=== PATIENT | female | born 1995 | race Caucasian/White ===

== ENCOUNTER → 2018-08-22 | Outpatient (CLI) | payer OTHER ==
[2018-08-25 01:09] LABS: CHLAMYDIA TRACHOMATIS, NAA Negative (Negative); NEISSERIA GONORRHOEAE, NAA Negative (Negative)
== END | disposition home or self-care (01) ==
LOC: LAB 17:55 → LAB SHORT 17:55
PROVIDERS: Obstetrics & Gynecology
DX: Z34.01 Encounter for supervision of normal first pregnancy, first trimester (principal); Z3A.12 12 weeks gestation of pregnancy
CPT/HCPCS: 87491; 87591

== ENCOUNTER → 2019-03-01 | Outpatient (CLI) | payer OTHER | END | disposition home or self-care (01) | LOC: LAB 12:44 → LAB SHORT 12:44 | DX: Z34.03 Encounter for supervision of normal first pregnancy, third trimester (principal); Z3A.36 36 weeks gestation of pregnancy | CPT/HCPCS: 87081; 87653 ==

== ENCOUNTER 2019-03-13 10:03 | Inpatient (IN) | payer OTHER ==
[~2019-03-13] VITALS: Ht 162.6 cm; Wt 124.0 kg
[2019-03-13] MEDS ORDERED: PRENATAL TABLE1 EAC2 PO (10:15)
[2019-03-13 10:47] LABS: BASOPHILS ABSOLUTE AUTO 0.03 K/mm3 (0.00-0.23); BASOPHILS PERCENT AUTO 0 % (0-2); EOSINOPHILS ABSOLUTE AUTO 0.08 K/mm3 (0.00-0.68); EOSINOPHILS PERCENT AUTO 1 % (0-6); Hematocrit 38.4 % (33.0-51.0); IMMATURE GRAN PERCENT AUTO 1 % (0-1); LYMPHOCYTES ABSOLUTE AUTO 1.18 K/mm3 (0.84-5.20); LYMPHOCYTES PERCENT AUTO 10 % (21-46); MONOCYTES ABSOLUTE AUTO 0.82 K/mm3 (0.16-1.47); MONOCYTES PERCENT AUTO 7 % (4-13); Mean Corpuscular HGB 30.2 pg (26.0-34.0); Mean Corpuscular HGB Conc 33.9 g/dL (31.5-36.5); Mean Corpuscular Volume 89 fL (80-100); Mean Platelet Volume 9.5 fL (9.1-12.4); NEUTROPHILS PERCENT AUTO 82 % (41-73); Platelet Count 297 K/mm3 (150-400); RDW Coefficient Variation 13.8 % (11.7-14.2); RDW Standard Deviation 44.5 fL (35.1-46.3); White Blood Cell Count 12.01 K/mm3 (4.00-11.30)
--- NOTE | 2019-03-14 13:05 | NUR ---
03/14/19 1305 Monserrat Guerin 1240 PATIENT ARRIVED TO OR WITH KELLY CATHETER INPLACE, EPIDURAL CATHETER REMOVED BY DR SMITH CATHETER TIP INTACT
[2019-03-14 13:22] LABS: pH Cord - Arterial 7.29 (7.28-7.35)
[2019-03-14 13:23] LABS: PO2 Cord - Arterial < 13 mmHg (16-20)
[2019-03-14 13:24] LABS: PCO2 Cord - Venous 46.2 mmHg (40-50); PO2 Cord - Venous 24.5 mmHg (28-32); pH Umbilical Cord - Venous 7.32 (7.26-7.35)
--- NOTE | 2019-03-15 04:51 | NUR ---
PATIENT REFUSING NINA CARE/PAD CHANGE AT THIS TIME. STATES SHE WANTS TO WAIT UNTIL SHE GETS UP TO SIDE OF THE BED IN AM.
[2019-03-15 05:09] LABS: BASOPHILS ABSOLUTE AUTO 0.03 K/mm3 (0.00-0.23); BASOPHILS PERCENT AUTO 0 % (0-2); EOSINOPHILS ABSOLUTE AUTO 0.07 K/mm3 (0.00-0.68); EOSINOPHILS PERCENT AUTO 0 % (0-6); Hematocrit 31.8 % (33.0-51.0); Hemoglobin 10.6 g/dL (11.5-16.0); IMMATURE GRAN ABSOLUTE AUTO 0.11 K/mm3 (0.00-0.10); IMMATURE GRAN PERCENT AUTO 1 % (0-1); LYMPHOCYTES ABSOLUTE AUTO 1.25 K/mm3 (0.84-5.20); LYMPHOCYTES PERCENT AUTO 8 % (21-46); MONOCYTES ABSOLUTE AUTO 1.18 K/mm3 (0.16-1.47); MONOCYTES PERCENT AUTO 7 % (4-13); Mean Corpuscular HGB 30.9 pg (26.0-34.0); Mean Corpuscular HGB Conc 33.3 g/dL (31.5-36.5); Mean Corpuscular Volume 93 fL (80-100); Mean Platelet Volume 8.9 fL (9.1-12.4); NEUTROPHILS ABSOLUTE AUTO 13.62 K/mm3 (1.96-9.15); NEUTROPHILS PERCENT AUTO 84 % (41-73); Platelet Count 272 K/mm3 (150-400); RDW Coefficient Variation 13.9 % (11.7-14.2); RDW Standard Deviation 46.9 fL (35.1-46.3); Red Blood Cell Count 3.43 M/mm3 (3.80-5.20); White Blood Cell Count 16.26 K/mm3 (4.00-11.30)
--- NOTE | 2019-03-15 11:30 | NUR ---
PT REFUSES KELLY OUT AT THIS TIME. WANTS PAIN MEDICATION TO KICK IN FIRST. WILL CALL WHEN READY TO GET UP
--- NOTE | 2019-03-15 13:15 | NUR ---
PT STILL DECLINING KELLY OUT, SHE HAS A ROOM FULL OF VISITORS. STATES SHE WILL GET UP AND KELLY D/C WHEN THEY LEAVE
--- NOTE | 2019-03-15 13:30 | NUR ---
PT SITTING UP AT BEDSIDE. VISITING WITH FAMILY
--- NOTE | 2019-03-15 14:30 | NUR ---
STANDING AT BEDSIDE. WANTS TO WAIT FOR SHOWER TILL NEXT PERCOCET AND WAIT FOR KELLY D/C
--- NOTE | 2019-03-15 17:00 | NUR ---
PT EATING DINNER. STATES SHE WILL GET UP AND SHOWER AT 1930, UNLESS SHE CHANGES HER MIND AND CALLS RN.
[2019-03-16] MEDS ORDERED: Percocet 5-3251 EACH PO (12:44)
[2019-03-16] MEDS ORDERED: IBUP800 PO (12:44)
--- NOTE | 2019-03-16 16:10 | NUR ---
DISCHARGE TEACHING TEACHING COMPLETED WITH BOTH PT AND SIGNIFICANT OTHER BOTH VERBALIZE UNDERSTANDING AND HAVE NO FURTHER QUESTIONS OR CONCERNS AT THIS TIME
--- NOTE | 2019-03-16 16:37 | NUR ---
No acute changes t/o shift. Pt denies any additional questions or concerns at this time. Pt d/c'd home ambulatory to care of SO.
== END 2019-03-16 16:45 | disposition home or self-care (01) | DRG 788 ==
LOC: BC 10:03 → OBS 10:03 → BC 10:11
PROVIDERS: ADMIT Obstetrics & Gynecology
PROC: 10D00Z1 Extraction of Products of Conception, Low, Open Approach (ICD-10-PCS; principal; 2019-03-14 12:30)
DX: O42.02 Full-term premature rupture of membranes, onset of labor within 24 hours of rupture (principal); Z37.0 Single live birth; Z3A.38 38 weeks gestation of pregnancy; O76 Abnormality in fetal heart rate and rhythm complicating labor and delivery; O62.1 Secondary uterine inertia; O99.214 Obesity complicating childbirth; E66.01 Morbid (severe) obesity due to excess calories
CPT/HCPCS: 36415; 51702; 59025; 82803; 85025; 86850; 86900; 86901; J0290; J0690; J1885; J2001; J2405; J2590; J2765; J3010; J7120

== ENCOUNTER → 2020-05-28 | Outpatient (CLI) | payer OTHER ==
[~2020-05-28] MED LIST: COLACE100 MG PO; FLUO10 PO; IBU800 M1 PO; IBUP800 PO; PRENATAL TABLE1 EAC2 PO; Percocet 5-3251 EACH PO
== END | disposition home or self-care (01) ==
LOC: LAB SHORT 15:59 → LAB 15:59
DX: Z34.83 Encounter for supervision of other normal pregnancy, third trimester (principal); Z3A.36 36 weeks gestation of pregnancy
CPT/HCPCS: 87081; 87150

== ENCOUNTER 2020-06-14 15:28 | Inpatient (IN) | payer OTHER ==
[~2020-06-14] VITALS: Ht 162.6 cm; Wt 105.0 kg
[~2020-06-14 15:28] MED LIST changes: -COLACE100 MG PO; -FLUO10 PO; -IBU800 M1 PO
[2020-06-17] MEDS ORDERED: FLUO10 PO (17:05)
[2020-06-19 06:15] LABS: BASOPHILS ABSOLUTE AUTO 0.04 K/mm3 (0.00-0.23); BASOPHILS PERCENT AUTO 0 % (0-2); EOSINOPHILS ABSOLUTE AUTO 0.13 K/mm3 (0.00-0.68); EOSINOPHILS PERCENT AUTO 1 % (0-6); Hematocrit 35.2 % (33.0-51.0); Hemoglobin 12.2 g/dL (11.5-16.0); IMMATURE GRAN ABSOLUTE AUTO 0.06 K/mm3 (0.00-0.10); IMMATURE GRAN PERCENT AUTO 1 % (0-1); LYMPHOCYTES ABSOLUTE AUTO 1.55 K/mm3 (0.84-5.20); LYMPHOCYTES PERCENT AUTO 16 % (21-46); MONOCYTES ABSOLUTE AUTO 0.75 K/mm3 (0.16-1.47); MONOCYTES PERCENT AUTO 8 % (4-13); Mean Corpuscular HGB 31.4 pg (26.0-34.0); Mean Corpuscular HGB Conc 34.7 g/dL (31.5-36.5); Mean Corpuscular Volume 91 fL (80-100); NEUTROPHILS ABSOLUTE AUTO 7.06 K/mm3 (1.96-9.15); NEUTROPHILS PERCENT AUTO 74 % (41-73); Platelet Count 261 K/mm3 (150-400); RDW Coefficient Variation 13.6 % (11.7-14.2); RDW Standard Deviation 45.1 fL (35.1-46.3); Red Blood Cell Count 3.88 M/mm3 (3.80-5.20); White Blood Cell Count 9.59 K/mm3 (4.00-11.30)
--- NOTE | 2020-06-19 08:04 | NUR ---
06/19/20 0804 Monserrat Guerin 0756 DELIVERY VIABLE MALE , WEIGHT 6# 15OZ 3150GM, HEAD 14 INCHES, CHEST 13 INCHES, LENGTH 18.5 INCHES, APGARS 9/9, UMBILICAL CORD BLODD COLLECTED GIVEN TO RT FOR CORD GASES, UMBILCAL CORD BLOOD COLLECTED FOR TYPE AND RH
[2020-06-19 08:23] LABS: PCO2 Cord - Arterial 37.6 mmHg (40-50); PO2 Cord - Arterial 27.4 mmHg (16-20); pH Cord - Arterial 7.34 (7.28-7.35)
[2020-06-19 08:25] LABS: PCO2 Cord - Venous 37.5 mmHg (40-50); PO2 Cord - Venous 28.5 mmHg (28-32); pH Umbilical Cord - Venous 7.34 (7.26-7.35)
--- NOTE | 2020-06-19 15:00 | NUR ---
pt medicated with 1 perc, reports pain hurts a little bit and would like something, when asked her a number when medicating her it is a 7-8. will try one pain pill and reassess in 30 minutes to see if needs another
--- NOTE | 2020-06-19 15:45 | NUR ---
RN/LC ROUNDED TO HELP W/ . PT REPORTS THAT NB JUST FED WELL. INSTRUCTED PT TO TRY TO LATCH NB EVERY 2-3 HOURS, IF NB NOT LATCHING TO HAND EXPRESS 10+ DROPS OF COLOSTRUM INTO NB'S MOUTH. INSTRUCTED PT ON CORRECT POSITIONING, LATCHING, AND NIPPLE SHAPE AFTER FEEDS. REVIEWED GUIDE TO BOOK W/ PT. PT DENIES ANY FURTHER QUESTIONS OR CONCERNS. WILL ATTEMPT TO ROUND AGAIN IN THE MORNING.
[2020-06-20 05:25] LABS: Hematocrit 31.2 % (33.0-51.0); Hemoglobin 10.7 g/dL (11.5-16.0); Mean Corpuscular HGB 31.8 pg (26.0-34.0); Mean Corpuscular HGB Conc 34.3 g/dL (31.5-36.5); Mean Corpuscular Volume 93 fL (80-100); Mean Platelet Volume 8.9 fL (9.1-12.4); Platelet Count 220 K/mm3 (150-400); RDW Coefficient Variation 13.8 % (11.7-14.2); RDW Standard Deviation 46.4 fL (35.1-46.3); Red Blood Cell Count 3.36 M/mm3 (3.80-5.20); White Blood Cell Count 11.88 K/mm3 (4.00-11.30)
--- NOTE | 2020-06-20 14:00 | NUR ---
RN/LC ROUNDED TOHELP W/ . TALKED W/PT ABOUT FREQUENCY OF , PUMPING AFTER FEEDS, CORRECT LATCH/POSITIONING, CLUSTER FEEDING AND MILK SUPPLY/ENGORGMENT. PT VERBALIZED UNDERSTANDING, DENIES ANY FURTHER QUESTIONS OR CONCERNS. FURTHER LC OFFERED IF PT DESIRES.
[2020-06-21] MEDS ORDERED: COLACE100 MG PO (08:21)
[2020-06-21] MEDS ORDERED: Percocet 5-3251 EACH PO (08:23)
[2020-06-21] MEDS ORDERED: IBU800 M1 PO (08:24)
--- NOTE | 2020-06-21 10:00 | NUR ---
DISCHARGE SUMMARY PT DC HOME TODAY WITH NB AND SPOUSE. INSTRUCTIONS, SCRIPTS, AND PERSONAL BELONGINGS PROVIDED TO PT PRIOR TO DC. FOLLOW APPT SCHEDULED.
== END 2020-06-21 09:39 | disposition home or self-care (01) | DRG 788 ==
LOC: BC 06-19 05:35
PROVIDERS: Obstetrics & Gynecology; ADMIT Family Medicine
PROC: 10D00Z1 Extraction of Products of Conception, Low, Open Approach (ICD-10-PCS; principal; 2020-06-19 07:30)
DX: O34.211 Maternal care for low transverse scar from previous cesarean delivery (principal); Z3A.39 39 weeks gestation of pregnancy; Z37.0 Single live birth; O99.214 Obesity complicating childbirth; E66.01 Morbid (severe) obesity due to excess calories; O99.344 Other mental disorders complicating childbirth; F41.9 Anxiety disorder, unspecified
CPT/HCPCS: 36415; 82803; 85025; 85027; 86850; 86900; 86901; A9270; J0690; J1885; J2590; J2765; J3010; J7120

== ENCOUNTER 2020-10-23 17:51 | Emergency (ER) | payer OTHER ==
[~2020-10-23] VITALS: Ht 162.6 cm; Wt 90.7 kg
[~2020-10-23 17:51] MED LIST changes: +COLACE100 MG PO; +FLUO10 PO; +IBU800 M1 PO
[2020-10-23 20:24] LABS: BASOPHILS ABSOLUTE AUTO 0.04 K/mm3 (0.00-0.23); BASOPHILS PERCENT AUTO 0 % (0-2); EOSINOPHILS ABSOLUTE AUTO 0.19 K/mm3 (0.00-0.68); EOSINOPHILS PERCENT AUTO 2 % (0-6); Hematocrit 40.5 % (33.0-51.0); IMMATURE GRAN ABSOLUTE AUTO 0.03 K/mm3 (0.00-0.10); IMMATURE GRAN PERCENT AUTO 0 % (0-1); LYMPHOCYTES ABSOLUTE AUTO 1.83 K/mm3 (0.84-5.20); LYMPHOCYTES PERCENT AUTO 19 % (21-46); MONOCYTES ABSOLUTE AUTO 0.74 K/mm3 (0.16-1.47); MONOCYTES PERCENT AUTO 8 % (4-13); Mean Corpuscular HGB 29.5 pg (26.0-34.0); Mean Corpuscular HGB Conc 34.6 g/dL (31.5-36.5); Mean Corpuscular Volume 85 fL (80-100); Mean Platelet Volume 8.7 fL (9.1-12.4); NEUTROPHILS ABSOLUTE AUTO 6.82 K/mm3 (1.96-9.15); NEUTROPHILS PERCENT AUTO 71 % (41-73); Platelet Count 507 K/mm3 (150-400); RDW Coefficient Variation 13.6 % (11.7-14.2); RDW Standard Deviation 42.7 fL (35.1-46.3); Red Blood Cell Count 4.74 M/mm3 (3.80-5.20); White Blood Cell Count 9.65 K/mm3 (4.00-11.30)
[2020-10-23 20:46] LABS: Alanine Aminotransfer (ALT/SGP 30 U/L (12-78); Albumin, Blood 3.8 g/dL (3.4-5.0); Albumin/Globulin Ratio 1.1 (0.8-1.8); Alk Phos 83 U/L (50-136); Anion Gap 6 mmol/L (6-16); Aspartate Aminotrans (AST/SGOT 16 U/L (12-37); Bilirubin, Total 0.6 mg/dL (0.1-1.0); Blood Urea Nitrogen 8 mg/dL (8-24); CO2, Blood 25 mmol/L (21-32); CPK Creatine Kinase 137 U/L (26-193); Chloride, Blood 107 mmol/L (98-108); Creatinine, Blood 0.61 mg/dL (0.40-1.00); Globulin, Blood 3.6 g/dL (2.2-4.0); Glomerular Filtration Rate >60 (60-); Glucose, Blood 80 mg/dL (70-99); Potassium, Blood 3.5 mmol/L (3.5-5.5); Sodium, Blood 138 mmol/L (136-145); Total Protein, Blood 7.4 g/dL (6.4-8.2)
[2020-10-23 20:47] LABS: Source, Urine Clean Catch
[2020-10-23 20:50] LABS: Appearance, Urine Clear (Clear); Bilirubin, Urine Neg (Neg); Blood, Urine Neg (Neg); Color, Urine Yellow (P-Yellow); Glucose Qualitative, Urine Neg (Neg); Ketones, Urine Neg (Neg); Leukocyte Esterase, Urine Neg (Neg); Nitrite, Urine Neg (Neg); Protein, Urine 1+ (Neg); Urobilinogen, Urine NORM (Normal)
[2020-10-23 21:57] LABS: Phosphorus, Blood 2.8 mg/dL (2.5-4.9)
== END 2020-10-23 23:07 | disposition home or self-care (01) ==
LOC: ER 17:51
PROVIDERS: Emergency Medicine
DX: R53.1 Weakness (principal); Z79.899 Other long term (current) drug therapy
CPT/HCPCS: 80053; 82550; 84100; 84443; 85025; 93005; 93010; 99285-25